=== PATIENT | female | born 1985 | race Caucasian/White ===

== ENCOUNTER 2017-07-03 15:06 | Emergency (ER) | payer MEDICAID ==
[~2017-07-03] VITALS: Ht 177.8 cm; Wt 90.7 kg
[2017-07-03 15:21] VITALS: Ht 177.8 cm; Wt 90.7 kg
[2017-07-03 18:50] VITALS: BP 146/79
== END 2017-07-03 18:50 | disposition home or self-care (01) ==
LOC: ED 15:06
DX: B34.9 Viral infection, unspecified (principal); I10 Essential (primary) hypertension